=== PATIENT | male | born 1955 | race African-American/Black ===

== ENCOUNTER 2023-09-03 12:21 | Outpatient (CLI) | payer MEDICARE ==
[~2023-09-03 12:21] MED LIST: Magnevist 469MG/ML 20 ML VIAL ONE
== END 2023-09-03 12:22 | disposition home or self-care (01) ==
LOC: CSHMRI 12:21
PROVIDERS: ATTEND Radiology Radiation Oncology
DX: C61 Malignant neoplasm of prostate (principal)
CPT/HCPCS: 72197; 82565